=== PATIENT | male | born 1990 | race Caucasian/White ===

== ENCOUNTER 2024-01-26 16:42 | Emergency (ER) | payer BC, OTHER ==
[~2024-01-26] VITALS: Ht 175.3 cm; Wt 77.3 kg
[2024-01-26 17:58] LABS: CLARITY,URINE CLOUDY (Clear); COLOR,URINE RED (Yellow); UA COLLECTION TYPE CLN CATCH MIDSTREAM
[2024-01-26 18:10] LABS: RBC,URINE TNTC /HPF (0-2); WBC,URINE 30-50 /HPF (0-4)
[2024-01-26 18:11] LABS: BACTERIA,URINE FEW /HPF (Neg); SQUAMOUS EPITHELIAL CELL,UR FEW /LPF (FEW)
[2024-01-26 18:46] LABS: BASOPHILS # (AUTO) 0.2 X10'3 (0-0.2); BASOPHILS % (AUTO) 1.6 % (0-1); EOSINOPHILS # (AUTO) 0.1 X10'3 (0-0.9); HEMATOCRIT 43.3 % (42.0-52.0); HEMOGLOBIN 14.4 g/dl (14.0-17.9); LYMPHOCYTES # (AUTO) 2.5 X10'3 (1.1-4.8); LYMPHOCYTES % (AUTO) 16.6 % (21-51); MEAN CORPUSCULAR HEMOGLOBIN 28.6 PG (27.0-31.0); MEAN CORPUSCULAR HGB CONC 33.3 g/dL (33.0-36.5); MEAN CORPUSCULAR VOLUME 85.9 FL (78-98); MEAN PLATELET VOLUME 8.4 FL (7.4-10.4); MONOCYTES # (AUTO) 0.9 X10'3 (0-0.9); MONOCYTES % (AUTO) 6.2 % (2-12); NEUTROPHILS # (AUTO) 11.2 X10'3 (1.8-7.7); NEUTROPHILS % (AUTO) 74.6 % (42-75); PLATELET COUNT 247 X10'3 (140-440); RED BLOOD COUNT 5.04 X10'6 (4.70-6.10); RED CELL DISTRIBUTION WIDTH 13.7 % (11.5-14.5)
[2024-01-26 19:04] LABS: ALANINE AMINOTRANSFERASE 36 U/L (12-78); ALBUMIN/GLOBULIN RATIO 1.1 (1.1-1.5); ALKALINE PHOSPHATASE 70 IU/L (46-116); ANION GAP 6 (8-16); ASPARTATE AMINO TRANSFERASE 19 U/L (10-37); BILIRUBIN,TOTAL 0.9 MG/DL (0.1-1.0); BLOOD UREA NITROGEN 8 MG/DL (7-18); BUN/CREATININE RATIO 6.6 (10.0-20.0); CALCIUM 9.2 MG/DL (8.5-10.1); CHLORIDE 100 MMOL/L (99-107); CREATININE 1.21 MG/DL (0.60-1.10); GLUCOSE 99 MG/DL (70-104); POTASSIUM 4.1 MMOL/L (3.5-5.1); SODIUM 137 MMOL/L (135-145); TOTAL CARBON DIOXIDE 30.9 MMOL/L (24-32); TOTAL PROTEIN 7.8 G/DL (6.4-8.2); eCRCL 85 ML/MIN; eGFR 68 ML/MIN
[2024-01-26 19:52] LABS: APTT 29 SECONDS (22-32); PROTHROMBIN TIME 10.3 SECONDS (9.0-12.0)
[2024-01-26] MEDS ORDERED: ondansetron 4mg rapidly disintigrating tab PO ONE (20:25)
[2024-01-26] MEDS ORDERED: ketorolac trometh inj. 60 MG/2 ML VIAL IM ONE (20:25)
[2024-01-26] MEDS ORDERED: PHEN-716 PO (20:34)
[2024-01-26] MEDS ORDERED: ONDA8TAB13 PO (20:34)
[2024-01-26] MEDS ORDERED: FLO0.4C PO (20:34)
[2024-01-26] MEDS ORDERED: HYDR-3965 PO (20:34)
[2024-01-26 21:01] VITALS: BP 132/91; PULSE 72; O2SAT 96
[2024-01-26 21:26] VITALS: RESP 16
[2024-01-26] MEDS: ketorolac trometh. 30mg/ml inj. IM ONE (21:26)
[2024-01-26] MEDS: ondansetron 4mg rapidly disintigrating tab PO ONE (21:26)
[2024-01-26 21:33] VITALS: TEMP 97.5
[2024-01-26 21:35] LABS: PLATELET ESTIMATE NORMAL; TOTAL CELLS COUNTED 100
== END 2024-01-26 21:35 | disposition home or self-care (01) ==
LOC: ER 16:43
DX: N20.0 Calculus of kidney (principal); R31.9 Hematuria, unspecified; R11.0 Nausea
CPT/HCPCS: 36415; 74176; 80053; 81001; 83605; 85007; 85025; 85610; 85730; 87040; 87077; 87088; 87186; 96372; 99285; J1885